=== PATIENT | female | born 1935 | race Caucasian/White ===

== ENCOUNTER 2022-09-27 08:41 | Outpatient (RCR) | payer MEDICARE, BC | END 2022-10-04 15:36 | disposition home or self-care (01) | LOC: OPPGERO 08:41 | DX: F31.81 Bipolar II disorder (principal); F41.1 Generalized anxiety disorder; I10 Essential (primary) hypertension; E03.9 Hypothyroidism, unspecified; G20 Parkinson's disease; E78.5 Hyperlipidemia, unspecified ==